=== PATIENT | male | born 1975 | race Caucasian/White ===

== ENCOUNTER 2019-06-13 13:28 | Emergency (ER) | payer MEDICAID, SELFPAY ==
[2019-06-13 13:43] VITALS: BP 203/104; PULSE 62; RESP 18; TEMP 36.6; O2SAT 99; BMI 34.7
--- NOTE | 2019-06-13 13:50 | HMH.EDUTC ---
[facility] [place] Disposition Clinical Impression: Medication refill Disposition: Home, Self-Care Condition on Discharge: Good Instructions: Treatments for High Blood Pressure: More Than Just Taking a Pill, Hypertension (Alternative Therapy) Additional Instructions: Make sure to take your medication as prescribed as instructed by your PCP *Follow up with family doctor as prescribed *Return if needed Straight to ER if any life threatening symptoms Prescriptions: Lisinopril/Hydrochlorothiazide [Lisinopril-Hctz 20-25 mg Tab*] 1 tab PO DAILY 30 Days #30 tab Prescription Printed Referrals: Provider,Referral, [Primary Care Provider] - Beverly Fisher APRN [Referring] - As needed Time of Disposition: 14:22 Medical Decision Making - Fili Inquiry Pt receiving controlled substance: No Fili was queried for this patient: No Vital Signs: 06/13/19 13:43 Temperature 97.8 F Temperature Source Oral Pulse Rate [Right Brachial] 62 Respiratory Rate 18 Blood Pressure [Right Arm] 203/104 H Blood Pressure Mean [Right Arm] 137 Blood Pressure Source [Right Arm] Automatic Cuff Blood Pressure Position [Right Arm] Sitting 02 Sat by Pulse Oximetry 99 Oxygen Delivery Method Room Air - Reevaluation(s) Time: 14:17 Reevaluation #1: Called and spoke with staff at [facility] office and they looked at patient chart States that patient was prescribed Lisinopril/HCTZ and in Feb she added Amlodipine due to patient blood pressure still elevated but not sure if patient started that medication Called [facility] in [place] where the medication was sent and they advised that patient never picked it up Patient educated on medication and patient states that he went to [facility] the medication and was told it wasnt but will contact them about the medication Discussed with clinic that we would give him one month supply of his Lisinopril/HCTZ and have him follow up with them or new PCP for further prescriptions [facility] HPI - General Stated complaint: blood pressure check Time Seen by Provider: 06/13/19 13:50 Mode of Arrival: Ambulatory Source of Information: Patient Limitations: No Limitations Description of Symptoms (Recalled from Triage Doc. by RN): PATIENT STATES HE HAS NOT BEEN ON HIS BLOOD PRESSURE MEDS X 1 MONTH. HE SAYS HE HAS CHANGED PCP AND HAS A NEW ONE, HOWEVER HAS NOT BEEN ABLE TO GET IN TO SEE THEM. C/O ON AND OFF HEADACHES FOR THE LAST MONTH HEENT Symptoms (Recalled from RN notes): Yes Resp Symptoms (Recalled from RN notes): No Skin Symptoms (Recalled from RN notes): No MS Symptoms (Recalled from RN notes): No Functional Status (Recalled from RN notes): WNL - History of Present Illness Provider Complaint: Patient state that he is in the process of changing providers and he has been out of his Blood pressure medication for about a month States that he had appointment with his new provider but was unable to get in due to COVID19 shutdown. States that he is here today to see if he can get a refill on his medication to get him through until he sees his new provider. State that he has been having headaches on and off for the last month and knows that his blood pressure is up without his medication because he has been on it so long - Related Data Previous Rx's Medication Instructions Recorded Lisinopril/Hydrochlorothiazide 1 tab PO DAILY 30 Days #30 tab 06/13/19 [Lisinopril-Hctz 20-25 mg Tab*] Allergies Allergy/AdvReac Type Severity Reaction Status Date / Time No Known Allergies Allergy Verified 06/13/19 13:55 - Worker's Comp Is this a Worker's Comp case?: No [facility] History - Hepatitis A Screen Drug use history?: No High risk sexual behaviors?: No History of sexually transmitted infection?: No Currently employed?: No Childcare worker?: No Do you have indoor plumbing?: Yes Do you have electricity?: Yes Attestation statement:: This patient has been screened for Hepatitis A risk factors. I have reviewed the patient's pas
[2019-06-13 14:05] VITALS: BP 170/88
--- NOTE | 2019-06-13 14:15 | PC.NURSE ---
SPOKE WITH [facility] TO VERIFY THAT PATIENT HAS A PRESCRIPTION FOR AMLODIPINE. HE DOES HAVE AN AMLODIPINE PRESCRIPTION ON HOLD FOR HIM SINCE FEBRUARY
[2019-06-13 14:26] VITALS: BP 170/88; PULSE 62; RESP 18; TEMP 36.6; O2SAT 99
== END 2019-06-13 14:27 | disposition home or self-care (01) ==
PROVIDERS: Emergency Provider Nurse Practitioner
DX: R51 Headache (principal); I10 Essential (primary) hypertension; Z79.899 Other long term (current) drug therapy
CPT/HCPCS: 99201

== ENCOUNTER 2021-12-05 10:16 | Emergency (ER) | payer MEDICAID, SELFPAY ==
[2021-12-05 11:19] VITALS: BP 174/94; PULSE 82; RESP 18; TEMP 36.9; O2SAT 98; BMI 53.6
--- NOTE | 2021-12-05 11:30 | EXP.UTC ---
Discharge Plan Disposition Patient Disposition: Home, Self-Care Condition: Fair Prescriptions Prescriptions: New lisinopril-hydrochlorothiazide 20-25 mg tablet 1 tab PO BID Qty: 60 0RF metformin 1,000 mg tablet extended release 24 hr 1,000 mg PO DAILY Qty: 30 0RF atorvastatin [Lipitor] 10 mg tablet 10 mg PO HS Qty: 30 0RF aspirin [Adult Aspirin Regimen] 81 mg tablet,delayed release (DR/EC) 81 mg PO DAILY Qty: 30 0RF (DME) blood-glucose meter Misc See Rx Instructions .Route Qty: 1 0RF Rx Instructions: As directed (DME) Blood Glucose Test Strip See Rx Instructions .Route Qty: 50 0RF Rx Instructions: As directed No Action buprenorphine-naloxone 8-2 mg tablet, sublingual SUBLINGUAL gabapentin 100 mg capsule 100 mg PO TID 30 Days Qty: 90 0RF metoprolol succinate 25 mg tablet extended release 24 hr See Rx Instructions .ROUTE .COMPLEX Qty: 30 1RF Dose Instruction: TAKE 1 TABLET BY MOUTH EVERY DAY Rx Instructions: TAKE 1 TABLET BY MOUTH EVERY DAY sertraline 50 mg tablet See Rx Instructions .ROUTE .COMPLEX Qty: 30 1RF Dose Instruction: TAKE 1 TABLET BY MOUTH EVERY DAY Rx Instructions: TAKE 1 TABLET BY MOUTH EVERY DAY lisinopril-hydrochlorothiazide 20-25 mg tablet 1 tab PO DAILY Qty: 30 0RF Referrals Follow up/Referrals: Provider,MD Wallace [Primary Care Provider] - See instructions Bradley Mejia MD [Staff Physician] - See instructions (12/11/2021 2:00 PM [facility]) Clinical Impressions Clinical Impression: Hypertension, Diabetes mellitus Discharge ED Provider: Aimee Fisher [facility] [place] HPI General Stated complaint: Sugar, blood pressure Mode of Arrival: Ambulatory Source of Information: Patient Limitations: No Limitations Time Seen by Provider: 12/05/21 11:30 Description of Symptoms (Recalled from Triage Doc. by RN): Pt c/o elevated BP x5-6 years and elevated blood sugar x1 month. Pt states I need to be put on medication . HEENT Symptoms (Recalled from RN notes): No Resp Symptoms (Recalled from RN notes): No Skin Symptoms (Recalled from RN notes): No MS Symptoms (Recalled from RN notes): No Functional Status (Recalled from RN notes): n/a History of Present Illness Provider Complaint: Patient was seen at [facility] clinic and was told he needed medicine for his blood pressure and sugar. He has had high blood pressure for 5-6 years. Has RX for Zestoretic - says it is helping. But states that he does not currently have a PCP. He states that he has missed appointments, due to issues with his mother. She did get placed in a senior care yesterday. He denies headache, chest pain, vertigo, dyspnea. Previously referred for sleep study but did not have it done. He does state he is thirsty and tired all the time. His suboxone prescriber did labs and glucose was high, but he forgot to bring those labs with him today. Related Data Home Medications Medication Instructions Recorded Confirmed buprenorphine 8 mg-naloxone 2 mg sublingual 09/05/19 06/05/20 sublingual tablet Previous Rx's Medication Instructions Recorded gabapentin 100 mg capsule 100 mg PO TID 30 days #90 caps 09/05/19 metoprolol succinate 25 mg See Rx Instructions .Route 12/09/20 tablet,extended release 24 hr .COMPLEX #30 tabs sertraline 50 mg tablet See Rx Instructions .Route 12/09/20 .COMPLEX #30 tabs lisinopril 20 1 tab PO DAILY #30 tabs 10/23/21 mg-hydrochlorothiazide 25 mg tablet aspirin 81 mg tablet,delayed 81 mg PO DAILY #30 tabs 12/05/21 release (Adult Aspirin Regimen) atorvastatin 10 mg tablet (Lipitor) 10 mg PO HS #30 tabs 12/05/21 blood sugar diagnostic (Blood #50 ea 12/05/21 Glucose Test strips) blood-glucose meter #1 ea 12/05/21 lisinopril 20 1 tab PO BID #60 tabs 12/05/21 mg-hydrochlorothiazide 25 mg tablet metformin 1,000 mg tablet,extended 1,000 mg PO DAILY #30 tabs 12/05/21 release 24hr Al
[2021-12-05 12:05] VITALS: BP 174/94; PULSE 82; RESP 18; TEMP 36.9; O2SAT 98
[2021-12-05 12:10] LABS: Basophils # 0.1 K/mm3 (0-0.2); Basophils % 1.3 % (0.1-2.0); Eosinophils # 0.5 K/mm3 (0.0-0.4); Eosinophils % 5.1 % (0.1-12.0); Hematocrit 49.6 % (42.0-52.0); Hemoglobin 16.5 g/dL (14.1-18.0); Lymphocytes # 2.6 K/mm3 (0.7-4.5); Lymphocytes % 24.8 % (10-50); Mean Corpuscular HGB Conc 33.2 g/dL (31.8-35.4); Mean Corpuscular Hemoglobin 29.8 pg (27.0-31.2); Mean Corpuscular Volume 89.9 fl (80-94); Mean Platelet Volume 8.6 fl (7.4-10.4); Monocytes # 0.3 K/mm3 (0.1-1.0); Monocytes % 3.3 % (1.7-9.3); Neutrophils # 6.9 K/mm3 (1.8-7.8); Neutrophils % 65.5 % (37.0-80.0); Platelet Count 317 K/mm3 (142-424); Red Blood Count 5.52 M/mm3 (4.60-6.20); Red Cell Distribution Width 12.9 % (11.5-17.5); White Blood Count 10.5 K/mm3 (4.8-10.8)
[2021-12-05 12:15] LABS: POC Glucose,Bedside 405 (70-110)
[2021-12-05 12:15] LABS: Chloride 91 mmol/L (98-107); Potassium 3.8 mmoL/L (3.5-5.1); Sodium 136 mmol/L (136-145)
[2021-12-05 12:18] LABS: Alanine Aminotransferase 58 U/L (12-78); Albumin Level 4.5 g/dl (3.5-5.0); Albumin/Globulin Ratio 1.2 (1.1-1.8); Alkaline Phosphatase 100 U/L (38-126); Anion Gap 15.8 mEq/L (5-15); Aspartate Amino Transferase 46 U/L (17-59); Bilirubin,Total 0.7 mg/dl (0.2-1.3); Blood Urea Nitrogen 8 mg/dl (9-20); Carbon Dioxide 33 mmol/L (22.0-30.0); Creatinine Clearance Estimated 72 mL/min (50-200); Estimated Glomerular Filt Rate 90 ml/min (>60); GFR (African American) 109 ML/MIN (>60); Globulin 3.8 g/dL (1.3-3.2); Total Protein,Serum 8.3 g/dl (6.3-8.2)
[2021-12-05 12:19] LABS: Calcium 9.2 mg/dl (8.4-10.2)
[2021-12-05 12:22] LABS: Glucose 412 mg/dl (74-100); Hemoglobin A1C 10.9 % (4.0-6.0)
[2021-12-05 12:44] LABS: Chol/HDL Ratio 6.1 (1-3.5); Cholesterol 208 mg/dl (140-200); HDL Cholesterol 34 mg/dl (40-60); Triglycerides 150 mg/dl (30-150); VLDL Cholesterol 30 mg/dL (0-40)
[2021-12-05 12:49] LABS: Thyroid Stimulating Hormone 5.01 uIU/mL (0.465-4.68)
[2021-12-05 12:55] LABS: Direct LDL Cholesterol 129.04 mg/dL (100-129)
== END 2021-12-05 12:05 | disposition home or self-care (01) ==
PROVIDERS: Emergency Provider Physician Assistant
DX: E11.65 Type 2 diabetes mellitus with hyperglycemia (principal); I10 Essential (primary) hypertension; Z79.899 Other long term (current) drug therapy; F41.9 Anxiety disorder, unspecified; F43.10 Post-traumatic stress disorder, unspecified; G62.9 Polyneuropathy, unspecified; F11.11 Opioid abuse, in remission
CPT/HCPCS: 36415; 80053; 80061; 82962; 83036; 84443; 85025; 99283

== ENCOUNTER 2022-02-13 12:43 | Emergency (ER) | payer MEDICAID, SELFPAY ==
--- NOTE | 2022-02-13 15:10 | EXP.UTC ---
Discharge Plan Disposition Patient Disposition: Home, Self-Care Condition: Good Prescriptions Prescriptions: New lisinopril-hydrochlorothiazide 20-25 mg tablet 1 tab PO BID 30 Days Qty: 60 0RF metformin 500 mg tablet extended release 24hr 1,000 mg PO DAILY 30 Days Qty: 60 0RF No Action buprenorphine-naloxone 8-2 mg tablet, sublingual SUBLINGUAL gabapentin 100 mg capsule 100 mg PO TID 30 Days Qty: 90 0RF metoprolol succinate 25 mg tablet extended release 24 hr See Rx Instructions .ROUTE .COMPLEX Qty: 30 1RF Dose Instruction: TAKE 1 TABLET BY MOUTH EVERY DAY Rx Instructions: TAKE 1 TABLET BY MOUTH EVERY DAY sertraline 50 mg tablet See Rx Instructions .ROUTE .COMPLEX Qty: 30 1RF Dose Instruction: TAKE 1 TABLET BY MOUTH EVERY DAY Rx Instructions: TAKE 1 TABLET BY MOUTH EVERY DAY lisinopril-hydrochlorothiazide 20-25 mg tablet 1 tab PO DAILY Qty: 30 0RF lisinopril-hydrochlorothiazide 20-25 mg tablet 1 tab PO BID Qty: 60 0RF metformin 1,000 mg tablet extended release 24 hr 1,000 mg PO DAILY Qty: 30 0RF atorvastatin [Lipitor] 10 mg tablet 10 mg PO HS Qty: 30 0RF aspirin [Adult Aspirin Regimen] 81 mg tablet,delayed release (DR/EC) 81 mg PO DAILY Qty: 30 0RF (DME) blood-glucose meter Misc See Rx Instructions .Route Qty: 1 0RF Rx Instructions: As directed (DME) Blood Glucose Test Strip See Rx Instructions .Route Qty: 50 0RF Rx Instructions: As directed Referrals Follow up/Referrals: Bradley Mejia MD [Primary Care Provider] - See instructions Activity Restrictions/Add. Instructions Additional Instructions/Restrictions: Follow up with your Family Doctor for further prescriptions and refills on your medication Return if needed Further instructions per your Family Doctor Straight to ER if any life threatening symptoms Clinical Impressions Clinical Impression: Medication refill Instructions Patient Instructions: Hypertension (Alternative Therapy), Hydrochlorothiazide/Lisinopril (Alternative Therapy), Metformin Discharge ED Provider: Beatris Anderson [facility] [place] HPI General Stated complaint: blood pressure meds maybe day and night Time Seen by Provider: 02/13/22 15:10 Description of Symptoms (Recalled from Triage Doc. by RN): Patient states that he missed his appointment with his PCP to get his blood pressure and diabetes meds filled States that he missed his appointment due to mother was in the hospital due to stroke States that he wanted to get a refill until he can get into his family doctor to get him medication refilled states that he has been making what he had last but ran out a few weeks ago Related Data Home Medications Medication Instructions Recorded Confirmed buprenorphine 8 mg-naloxone 2 mg sublingual 09/05/19 06/05/20 sublingual tablet Previous Rx's Medication Instructions Recorded gabapentin 100 mg capsule 100 mg PO TID 30 days #90 caps 09/05/19 metoprolol succinate 25 mg See Rx Instructions .Route 12/09/20 tablet,extended release 24 hr .COMPLEX #30 tabs sertraline 50 mg tablet See Rx Instructions .Route 12/09/20 .COMPLEX #30 tabs lisinopril 20 1 tab PO DAILY #30 tabs 10/23/21 mg-hydrochlorothiazide 25 mg tablet aspirin 81 mg tablet,delayed 81 mg PO DAILY #30 tabs 12/05/21 release (Adult Aspirin Regimen) atorvastatin 10 mg tablet (Lipitor) 10 mg PO HS #30 tabs 12/05/21 blood sugar diagnostic (Blood #50 ea 12/05/21 Glucose Test strips) blood-glucose meter #1 ea 12/05/21 lisinopril 20 1 tab PO BID #60 tabs 12/05/21 mg-hydrochlorothiazide 25 mg tablet metformin 1,000 mg tablet,extended 1,000 mg PO DAILY #30 tabs 12/05/21 release 24hr lisinopril 20 1 tab PO BID 30 days #60 tabs 02/13/22 mg-hydrochlorothiazide 25 mg tablet metformin 500 mg tablet,extended 1,000 mg PO DAILY 30 days #60 tabs 02/13/22 release 24hr Allergies Allergy/AdvReac Type Severity Re
[2022-02-13 15:16] VITALS: BP 193/108; PULSE 65; RESP 18; TEMP 37.2; O2SAT 99; BMI 40.2
[2022-02-13 15:39] VITALS: BP 190/100; PULSE 65; RESP 18; TEMP 37.2
== END 2022-02-13 15:46 | disposition home or self-care (01) ==
PROVIDERS: Emergency Provider Nurse Practitioner; PCP Emergency Medicine
DX: I10 Essential (primary) hypertension (principal)
CPT/HCPCS: 99211; G0463

== ENCOUNTER 2022-12-11 15:31 | Emergency (ER) | payer MEDICAID, SELFPAY ==
[2022-12-11 15:32] VITALS: BP 160/95; PULSE 70; RESP 18; TEMP 36.7; O2SAT 97; BMI 40.2
--- NOTE | 2022-12-11 16:07 | CT_ITS ---
PROCEDURE INFORMATION: Exam: CTA Head With Contrast, Arteriography Exam date and time: 12/11/2022 5:26 PM Age: 47 years old Clinical indication: Headache; Additional info: DONOHUE; Randy hist of aneurysm TECHNIQUE: Imaging protocol: Computed tomographic angiography of the head with contrast. Exam focused on the arteries. 3D rendering (Not supervised by radiologist): MIP and/or 3D reconstructed images were created by the technologist. Radiation optimization: All CT scans at this facility use at least one of these dose optimization techniques: automated exposure control; mA and/or kV adjustment per patient size (includes targeted exams where dose is matched to clinical indication); or iterative reconstruction. Contrast material: ISOVUE; Contrast volume: 86 ml; Contrast route: INTRAVENOUS (IV); REPORTING DATA: Count of CT and Cardiac NM exams in prior 12 months: This patient has received 0 known CTs and 0 known cardiac nuclear medicine studies in the 12 months prior to the current study. COMPARISON: CT HEAD/BRAIN WO CON 12/11/2022 5:23 PM FINDINGS: ANTERIOR CIRCULATION: Right internal carotid artery: Intracranial segment is patent with no significant stenosis. No aneurysm. Right middle cerebral artery: No occlusion or significant stenosis. No aneurysm. Right anterior cerebral artery: No occlusion or significant stenosis. No aneurysm. Left internal carotid artery: Intracranial segment is patent with no significant stenosis. No aneurysm. Left middle cerebral artery: No occlusion or significant stenosis. No aneurysm. Left anterior cerebral artery: No occlusion or significant stenosis. No aneurysm. POSTERIOR CIRCULATION: Right vertebral artery: No occlusion or significant stenosis. No aneurysm. Left vertebral artery: No occlusion or significant stenosis. No aneurysm. Basilar artery: No occlusion or significant stenosis. No aneurysm. Right posterior cerebral artery: No occlusion or significant stenosis. No aneurysm. Left posterior cerebral artery: No occlusion or significant stenosis. No aneurysm. Brain: No definite mass, mass effect, or midline shift. Cerebral ventricles: No ventriculomegaly. Bones/joints: Unremarkable. No acute fracture. Soft tissues: Unremarkable. IMPRESSION: No large vessel stenosis or occlusion.
--- NOTE | 2022-12-11 16:07 | CT_ITS ---
PROCEDURE INFORMATION: Exam: CTA Neck With Contrast Exam date and time: 12/11/2022 5:26 PM Age: 47 years old Clinical indication: Headache; Additional info: DONOHUE; Fam hist of aneurysm TECHNIQUE: Imaging protocol: Computed tomographic angiography of the neck with contrast. Exam focused on the cervical segments of the vasculature. 3D rendering (Not supervised by radiologist): MIP and/or 3D reconstructed images were created by the technologist. Radiation optimization: All CT scans at this facility use at least one of these dose optimization techniques: automated exposure control; mA and/or kV adjustment per patient size (includes targeted exams where dose is matched to clinical indication); or iterative reconstruction. Contrast material: ISOVUE; Contrast volume: 86 ml; Contrast route: INTRAVENOUS (IV); REPORTING DATA: Count of CT and Cardiac NM exams in prior 12 months: This patient has received 0 known CTs and 0 known cardiac nuclear medicine studies in the 12 months prior to the current study. COMPARISON: CT HEAD/BRAIN WO CON 12/11/2022 5:23 PM FINDINGS: Right common carotid artery: No stenosis. No dissection or occlusion. Right internal carotid artery: No stenosis of the extracranial segment. No dissection or occlusion. Right external carotid artery: No occlusion or stenosis of the origin. Left common carotid artery: No stenosis. No dissection or occlusion. Left internal carotid artery: No stenosis of the extracranial segment. No dissection or occlusion. Left external carotid artery: No occlusion or stenosis of the origin. Right vertebral artery: No stenosis. No dissection or occlusion. Left vertebral artery: No stenosis. No dissection or occlusion. Soft tissues: Normal. No significant soft tissue swelling. Bones/joints: No acute fracture. Mildly prominent lymph nodes in the mediastinum and hilum are nonspecific. Impression. Last. Correlate with history. IMPRESSION: No stenosis or occlusion. REFERENCES: NASCET CRITERIA. The degree of stenosis in the cervical segment of the internal carotid artery is based on NASCET criteria. Normal is no stenosis. Mild is less than 50% stenosis. Moderate is 50-69% stenosis. Severe is 70% to 99% stenosis. Total occlusion is no detectable patent lumen.
--- NOTE | 2022-12-11 16:07 | CT_ITS ---
PROCEDURE INFORMATION: Exam: CT Head Without Contrast Exam date and time: 12/11/2022 5:23 PM Age: 47 years old Clinical indication: Other: Headache; Additional info: DONOHUE; Fam hist of aneurysm TECHNIQUE: Imaging protocol: Computed tomography of the head without contrast. Radiation optimization: All CT scans at this facility use at least one of these dose optimization techniques: automated exposure control; mA and/or kV adjustment per patient size (includes targeted exams where dose is matched to clinical indication); or iterative reconstruction. REPORTING DATA: Count of CT and Cardiac NM exams in prior 12 months: This patient has received 0 known CTs and 0 known cardiac nuclear medicine studies in the 12 months prior to the current study. COMPARISON: No relevant prior studies available. FINDINGS: Brain: No acute territorial infarct. No hemorrhage. Unremarkable white matter for age. No mass effect. There is an age indeterminate lacunar type infarct in the right martha. Cerebral ventricles: No ventriculomegaly. Paranasal sinuses: Scattered paranasal sinus mucosal thickening, without air-fluid level present. Mastoid air cells: Visualized mastoid air cells are well aerated. Bones/joints: Unremarkable. No acute fracture. Soft tissues: Unremarkable. IMPRESSION: 1. No acute territorial infarct or hemorrhage. 2. Lacunar type infarct in the right martha is age indeterminate and may be chronic. If acute ischemia is suspected clinically recommend MRI brain follow-up.
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
[2022-12-11 16:53] LABS: Basophils % 0.3 % (0.1-2.0); Eosinophils # 0.4 K/mm3 (0.0-0.4); Eosinophils % 4.9 % (0.1-12.0); Hematocrit 46.2 % (42.0-52.0); Hemoglobin 15.8 g/dL (14.1-18.0); Lymphocytes # 2.1 K/mm3 (0.7-4.5); Lymphocytes % 24.6 % (10-50); Mean Corpuscular HGB Conc 34.2 g/dL (31.8-35.4); Mean Corpuscular Hemoglobin 31.6 pg (27.0-31.2); Mean Corpuscular Volume 92.5 fl (80-94); Mean Platelet Volume 8.3 fl (7.4-10.4); Monocytes # 0.4 K/mm3 (0.1-1.0); Monocytes % 4.3 % (1.7-9.3); Neutrophils # 5.6 K/mm3 (1.8-7.8); Neutrophils % 65.8 % (37.0-80.0); Platelet Count 243 K/mm3 (142-424); Red Cell Distribution Width 13.6 % (11.5-17.5); White Blood Count 8.6 K/mm3 (4.8-10.8)
[2022-12-11 16:58] LABS: Chloride 100 mmol/L (98-107); Sodium 139 mmol/L (136-145)
[2022-12-11 17:00] VITALS: BP 145/82; PULSE 61; O2SAT 97
[2022-12-11 17:01] LABS: Alanine Aminotransferase 45 U/L (12-78); Albumin Level 4.5 g/dl (3.5-5.0); Albumin/Globulin Ratio 1.2 (1.1-1.8); Alkaline Phosphatase 64 U/L (38-126); Aspartate Amino Transferase 39 U/L (17-59); Bilirubin,Total 0.5 mg/dl (0.2-1.3); Blood Urea Nitrogen 15 mg/dl (9-20); Carbon Dioxide 31 mmol/L (22.0-30.0); Estimated Glomerular Filt Rate 90 ml/min (>60); GFR (African American) 109 ML/MIN (>60); Globulin 3.8 g/dL (1.3-3.2); Total Protein,Serum 8.3 g/dl (6.3-8.2)
[2022-12-11 17:02] LABS: Calcium 9.1 mg/dl (8.4-10.2); Glucose 149 mg/dl (74-100)
[2022-12-11 18:00] VITALS: BP 140/84; PULSE 60; O2SAT 99
[2022-12-11 18:58] VITALS: BP 150/80; PULSE 56; RESP 18; TEMP 36.8; O2SAT 97
== END 2022-12-11 18:59 | disposition home or self-care (01) ==
PROVIDERS: Emergency Provider Student in an Organized Health Care Education/Training Program; PCP Physician Assistant
DX: R51.9 Headache, unspecified (principal); I10 Essential (primary) hypertension; F43.10 Post-traumatic stress disorder, unspecified
CPT/HCPCS: 70450; 70496; 70498; 80053; 85025; 96361; 96374; 96375; 99284; 99285; Q9967

== ENCOUNTER 2025-01-14 14:23 | Emergency (ER) | payer MEDICAID, SELFPAY ==
[2025-01-14] VITALS (12 sets, daily range): BP systolic 180–257; BP diastolic 89–121; PULSE 53–88; RESP 14–18; TEMP 36.6–36.7; O2SAT 94–99; BMI 47.5
--- NOTE | 2025-01-14 14:27 | ECG_ITS ---
APPROVED REPORT Exam: Resting ECG HR:65 bpm ECG Measurements Heart Rate 65 AXES OH 151 P 21 QRSd 95 QRS 6 QT 426 T 24 QTc 438 Conclusion SINUS RHYTHM NONSPECIFIC T-WAVE ABNORMALITY BORDERLINE ECG UNCONFIRMED REPORT Electronically signed by : MAURILIO REY, 01/14/2025 23:02:09
--- NOTE | 2025-01-14 14:27 | CT_ITS ---
PROCEDURE INFORMATION: Exam: CTA Head With Contrast, Arteriography Exam date and time: 01/14/2025 3:53 PM Age: 49 years old Clinical indication: Weakness TECHNIQUE: Imaging protocol: Computed tomographic angiography of the head with contrast. Exam focused on the arteries. 3D rendering (Not supervised by radiologist): MIP and/or 3D reconstructed images were created by the technologist. Radiation optimization: All CT scans at this facility use at least one of these dose optimization techniques: automated exposure control; mA and/or kV adjustment per patient size (includes targeted exams where dose is matched to clinical indication); or iterative reconstruction. Contrast material: ISOVUE; Contrast volume: 80 ml; Contrast route: INTRAVENOUS (IV); COMPARISON: 1. CT HEAD/BRAIN WO CON 01/14/2025 3:51 PM. Images only. Report not available. 2. CT HEAD/BRAIN WO CON 12/11/2022 5:23 PM FINDINGS: ANTERIOR CIRCULATION: Right internal carotid artery: The right ICA demonstrates mild calcified atherosclerosis not contributing to significant stenosis. No aneurysm. Right middle cerebral artery: No occlusion or significant stenosis. No aneurysm. Right anterior cerebral artery: No occlusion or significant stenosis. No aneurysm. Left internal carotid artery: The left ICA demonstrates mild calcified atherosclerosis not contributing to significant stenosis. No aneurysm. Left middle cerebral artery: No occlusion or significant stenosis. No aneurysm. Left anterior cerebral artery: No occlusion or significant stenosis. No aneurysm. POSTERIOR CIRCULATION: Right vertebral artery: The right vertebral artery is dominant. Patent. Left vertebral artery: The left vertebral artery is mildly developmentally hypoplastic. Patent. Basilar artery: The basilar artery is patent without significant stenosis. Potentially a subtle fenestration. Right posterior cerebral artery: No occlusion or significant stenosis. No aneurysm. Left posterior cerebral artery: No occlusion or significant stenosis. No aneurysm. Brain: No obvious hemorrhage or recent infarct on these postcontrast images. Cerebral ventricles: Moderate ventriculomegaly. The ventricles do appear prominent in size compared to the degree of convexity sulcal widening. The ventricles are larger compared to the exam of 2022. Please correlate clinically for possible normal pressure hydrocephalus. There are some progressive chronic ischemic changes since prior. Some ventricular enlargement could be due to central volume loss. Bones/joints: Moderate cervical degenerative disc disease. Soft tissues: Unremarkable. IMPRESSION: 1. Moderate ventricular enlargement with increased size of the ventricles since 2022. Please correlate clinically for possible normal pressure hydrocephalus. 2. No proximal intracranial arterial occlusion or high-grade stenosis seen.
--- NOTE | 2025-01-14 14:27 | CT_ITS ---
PROCEDURE INFORMATION: Exam: CT Head Without Contrast Exam date and time: 01/14/2025 3:51 PM Age: 49 years old Clinical indication: Other: Weakness TECHNIQUE: Imaging protocol: Computed tomography of the head without contrast. Radiation optimization: All CT scans at this facility use at least one of these dose optimization techniques: automated exposure control; mA and/or kV adjustment per patient size (includes targeted exams where dose is matched to clinical indication); or iterative reconstruction. COMPARISON: No relevant prior studies available. FINDINGS: Brain: Roblero-white matter differentiation is relatively well-maintained. Moderate decreased density within the periventricular deep white matter. These changes are nonspecific and more in keeping with areas of chronic microvascular ischemic change. Asymmetric area of mild decreased density within the anterior aspect of the left cerebellum more in keeping with areas of prior infarct or prominent sulcus. Mild decreased density is present along the posterior limb of the internal capsule on the right and left, more in keeping with microvascular ischemic change. Small old lacunar infarct within the periventricular deep white matter on the left measuring 5 mm. Probable small old lacunar infarct along the anterolateral margin of the right thalamus. Small 6 mm old lacunar infarct within the periventricular deep white matter in the lower right parietal lobe. Small 6 mm old lacunar infarct within the subcortical deep white matter within the right parietal lobe. Focal 8 mm round areas of decreased density is present along the undersurface of the posterior right frontal lobe. Findings compatible with small old lacunar infarct. New small 5 mm focus of increased density along the cortical margin within the inferomedial aspect of the right parietal lobe. This could correspond to a small calcification or small focal hemorrhage. Area of asymmetric decreased density within the posteromedial aspect of the left occipital lobe appears similar compared to the prior CT scan and may correspond to artifact. Small 4 mm old lacunar infarct or prominent perivascular space within the posterior right aspect of the martha. No subdural or epidural hematoma. No evidence of a new large territorial infarct. Asymmetric area of slight decreased density within the subcortical deep white matter extending over the convexity within the posterior right frontal and right parietal lobe does not definitively extend through the cortical margin and more likely corresponds to an area of microvascular ischemic change. This appears slightly increased in the interval. Cerebral ventricles: Mild prominence of the ventricular and sulcal pattern. The ventricles are midline in position. Paranasal sinuses: Mucosal thickening within the central right and left frontal sinus. Mucosal thickening along the ethmoid air cells. Mucosal thickening and potential retention cysts are present within the right and left maxillary sinus. Mild mucosal thickening within the sphenoid air cells. Mastoid air cells: Mastoid air cells are well-aerated. Bones: The calvarium is intact. Soft tissues: Soft tissues are unremarkable as visualized. Vasculature: Atherosclerotic plaque is present along the intracranial segment of the right and left internal carotid artery. No hyperdense MCA sign. Scattered atherosclerotic plaque along the intracranial segment of the right and left vertebral artery. IMPRESSION: 1. New small 5 mm focus of increased cortical density within the left parietal lobe (image 144 of series 5). Findings could correspond to a small focal areas of cortical hemorrhage. No other evidence of intraparenchymal hemorrhage. No subdural or epidural hematoma or fluid collection. 2. Mild prominence of the periventricular and subcortical deep white matter. There are numerous scattered small lacunar infarcts as described above. A few of these were present on prior CT scan. Additional areas are new. There is superimposed decreased density within the periventricular deep white matter, more prominent on the right. These changes correspond to additional underlying chronic microvascular ischemic change. No definitive new large territorial infarct. No hyperdense MCA sign. Given reported weakness, follow-up MRI of the brain should be considered.
--- NOTE | 2025-01-14 14:27 | CT_ITS ---
PROCEDURE INFORMATION: Exam: CTA Neck With Contrast Exam date and time: 01/14/2025 3:53 PM Age: 49 years old Clinical indication: Weakness TECHNIQUE: Imaging protocol: Computed tomographic angiography of the neck with contrast. Exam focused on the cervical segments of the vasculature. 3D rendering (Not supervised by radiologist): MIP and/or 3D reconstructed images were created by the technologist. Radiation optimization: All CT scans at this facility use at least one of these dose optimization techniques: automated exposure control; mA and/or kV adjustment per patient size (includes targeted exams where dose is matched to clinical indication); or iterative reconstruction. Contrast material: ISOVUE; Contrast volume: 80 ml; Contrast route: INTRAVENOUS (IV); COMPARISON: CT ANGIO NECK 12/11/2022 5:26 PM FINDINGS: Right common carotid artery: No stenosis. No dissection or occlusion. Right internal carotid artery: Trace proximal right ICA atherosclerosis does not contribute to stenosis. There is elongation and tortuosity of the distal cervical right ICA with mild vascular kinking. Right external carotid artery: No occlusion or stenosis of the origin. Left common carotid artery: No stenosis. No dissection or occlusion. Left internal carotid artery: Mild proximal left ICA atherosclerosis does not contribute to stenosis. Elongation and tortuosity of the distal cervical left ICA. Left external carotid artery: No occlusion or stenosis of the origin. Right vertebral artery: Moderate narrowing of the right vertebral artery origin due to noncalcified plaque. This is similar to the prior study, somewhat suboptimally assessed due to motion. Left vertebral artery: The left vertebral artery arises directly from the aortic arch. Patent. No dissection. Soft tissues: Normal. No significant soft tissue swelling. Bones/joints: No acute fracture. Mediastinal space: Some limitations assessing the upper mediastinum due to motion artifact. Mildly prominent lymph nodes appear grossly similar to the prior study. IMPRESSION: 1. No acute vascular findings in the neck. 2. 0% right ICA stenosis. 3. 0% left ICA stenosis. 4. Moderate origin stenosis of the right vertebral artery. REFERENCES: NASCET CRITERIA. The degree of stenosis in the cervical segment of the internal carotid artery is based on NASCET criteria. Normal is no stenosis. Mild is less than 50% stenosis. Moderate is 50-69% stenosis. Severe is 70% to 99% stenosis. Total occlusion is no detectable patent lumen.
--- OUTSIDE RECORDS SUMMARY | 2025-01-14 14:28 | XMS_ITS | Clinical Summary ---
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 Active metoprolol tartrate (LOPRESSOR) 25 MG tablet Take 25 mg by mouth 2 (Two) Times a Day. Active Social History Tobacco Use Types Packs/Day Years Used Date Smoking Tobacco: Never Smokeless Tobacco: Never Alcohol Use Standard Drinks/Week Comments Yes 0 (1 standard drink = 0.6 oz pur e alcohol) Abuse Screen Answer Date Recorded Unsafe at Home or Work/School Not on file Feels Threatened by Someone? Not on file Does Anyone Keep You from Co ntacting Others or Doint Things Outside the Home? Not on file 11/27/2022 Physical Sign of Abuse Present Not on file 1 Housing Stability Answer Date Recorded Current Living Arrangements Not on file 11/15 Potentially Unsafe Housing Conditions Not on nataly e 11/27/2022 Family and Community Support Answer Raymond e Recorded Help with Day-to-Day Activities Not on file 11/27/2022 Lonely or Isolated Not on file 11/27/2022 Employment Answer Date Recorded Do you want help finding or keeping work or a magen b? Not on file 11/27/2022 Disabilities Answer Date Recorded Concentrating, Remembering, or Making Decisions Difficulty Not on file 11/27/2022 Doing Errands Independently Difficulty Not on fi le 11/27/2022 Education Answer Date Recorded Help with school or training? Not on file Preferred Language Not on file 11/27/2022 Sex and Gender Information Value Date Recorded Sex Assigned at Not on file Legal Sex Male 12:12 PM EDT Gender Identity Not on file Sexual Orientation Not on file Last Filed Vital Signs Vital Sign Reading Time Taken Comments Blood Pressure 152/110 10/10/2020 1:41 PM EDT Pulse 59 10/10/2020 1:24 PM EDT Temperature 36.3 C (97.3 F) 10/10/2020 1:24 PM EDT Respiratory Rate 16 10/10/2020 1:24 PM EDT Oxygen Saturation 99% 10/10/2020 1:24 PM EDT Inhaled Oxygen Concentration - - Weight 110 kg (243 lb) 10/10/2020 1:24 PM EDT Height 157.5 cm (5' 2 ) 10/10/2020 1:24 PM EDT Body Mass Index 44.45 10/10/2020 1:24 PM EDT Plan of Treatment Health Maintenance Due Date Last Done Comments ANNUAL PHYSICAL 1974 HEPATITIS C SCREENING 1974 TDAP/TD VACCINES (1 - Tdap) 1993 COLOGUARD 2019 COLON CANCER SCREENING 5 YEAR SIGMOIDOSCOPY 2019 COLONOSCOPY 2019 [address] CANCER SCREENING [address] COLONOGRAPHY 2019 FECAL OCCULT BLOOD TEST 2019 FIT Testing (1 year) 2019 Pneumococcal Vaccine 50+ (1 of 1 - PCV) 01/29/2024 ZOSTER VACCINE (1 of 2) 01/29/2024 INFLUENZA VACCINE 09/15/2024 Insurance [employer] MEDICAID [place] [id number] Care Teams 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
--- OUTSIDE RECORDS SUMMARY | 2025-01-14 14:28 | XMS_ITS | Clinical Summary ---
Author Organization 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 Name Role Phone Unavailable Primary Care Provider Unavailabl e Social History Tobacco Use Types Packs/Day Years Used Date Smoking Tobacco: Never Assessed Sex and Gender Information Value Date Recorded Sex Assigned at Not on file Legal Sex Male 4:09 AM EDT Gender Identity Not on file Sexual Orientation Not on file Plan of Treatment Health Maintenance Due Date Last Done Comments Annual Wellness Exam 1977 DTaP/TDaP/Td (1 - Tdap) 1993 Hepatitis B Vaccine (1 of 3 - 19+ 3-dose series) 1993 Cologuard 2019 Colon Cancer Screening 2019 Colonoscopy 2019 FIT 2019 Sigmoidoscopy 2019 Virtual Colonography 2019 Pneumococcal Vaccine 50+ (1 of 1 - PCV) 01/29/2024 Zoster (1 of 2) 01/29/2024 COVID-19 Vaccine (1 - 2024-2 6 season) 2024 Influenza Vaccine (#1) 2024 Meningococcal B Vaccine Aged Out No l onger eligible based on patient's age to complete this topic
[2025-01-14 14:37] LABS: Hematocrit 49.7 % (42.0-52.0); Hemoglobin 17.2 g/dL (14.1-18.0); Immature Granulocytes % 0.4 %; Mean Corpuscular HGB Conc 34.6 g/dL (31.8-35.4); Mean Corpuscular Hemoglobin 29.7 pg (27.0-31.2); Mean Corpuscular Volume 85.8 fl (80-94); Nucleated Red Blood Cells % 0 %; Platelet Count 314 K/mm3 (142-424); Red Blood Count 5.79 M/mm3 (4.60-6.20); Red Cell Distribution Width-SD 38.5 fL; White Blood Count 15.6 K/mm3 (4.8-10.8)
[2025-01-14 14:45] LABS: Activated Partial Thrombo Time 26.2 seconds (22.8-30.6); INR 1.04 (0.9-1.1); Prothrombin Time 11.5 seconds (10.1-12.5)
--- NOTE | 2025-01-14 14:45 | ED_ITS ---
Discharge Plan Disposition Chief Complaint: Dizziness Prescriptions Prescriptions: No Action buprenorphine-naloxone 8-2 mg tablet, sublingual SUBLINGUAL metoprolol succinate 25 mg tablet extended release 24 hr See Rx Instructions .ROUTE .COMPLEX Qty: 30 1RF Dose Instruction: TAKE 1 TABLET BY MOUTH EVERY DAY Rx Instructions: TAKE 1 TABLET BY MOUTH EVERY DAY metformin 500 mg tablet extended release 24 hr See Rx Instructions .ROUTE .COMPLEX Qty: 60 2RF Dose Instruction: TAKE 2 TABLETS BY MOUTH EVERY DAY Rx Instructions: TAKE 2 TABLETS BY MOUTH EVERY DAY (DME) blood-glucose meter [OneTouch Verio Reflect Meter] [facility] See Rx Instructions .ROUTE .COMPLEX Qty: 1 0RF Dose Instruction: USE DIRECTED Rx Instructions: USE DIRECTED atorvastatin 10 mg tablet See Rx Instructions .ROUTE .COMPLEX Qty: 30 0RF Dose Instruction: TAKE 1 TABLET BY MOUTH ONCE DAILY Rx Instructions: TAKE 1 TABLET BY MOUTH ONCE DAILY patient needs an appt before anymore refills aspirin 81 mg tablet,delayed release (DR/EC) See Rx Instructions .ROUTE .COMPLEX Qty: 30 2RF Dose Instruction: TAKE 1 TABLET BY MOUTH ONCE DAILY Rx Instructions: TAKE 1 TABLET BY MOUTH ONCE DAILY lisinopril-hydrochlorothiazide 20-25 mg tablet See Rx Instructions .ROUTE .COMPLEX Qty: 60 2RF Dose Instruction: TAKE 1 TABLET BY MOUTH TWICE DAILY Rx Instructions: TAKE 1 TABLET BY MOUTH TWICE DAILY (DME) OneTouch Verio test strips Strip See Rx Instructions .ROUTE .COMPLEX Qty: 100 5RF Dose Instruction: USE TO CHECK BLOOD SUGAR DIRECTED Rx Instructions: USE TO CHECK BLOOD SUGAR DIRECTED Referrals Follow up/Referrals: Provider,Referral, [Primary Care Provider, Medical] - See instructions Stand Alone Forms Stand Alone Forms: Transfer Record - ED Print Language Print Language: [place] Discharge ED Provider: Noah Browne General Adult HPI <Noah Browne MD - Last Filed: 01/14/25 15:25> General Chief complaint: Dizziness Stated complaint: Hypertension Time Seen by Provider: 01/14/25 14:26 Mode of Arrival: EMS Source of Information: Patient Description of Symptoms (Recalled from ER Triage Doc. by RN): Reports dizziness and vomiting since Wednesday. States he has a history of high blood pressure and diabetes and hasn't had his medications in 3 years. History of Present Illness HPI narrative: Patient is a 49 yo male with history of diabetes that is uncontrolled and htn that is uncontrolled who presents with 2-3 days of spinning. he also states he has felt weak particularly on the left side since Wednesday. he states that his symptoms started on his way home from the doctor. he denies taking any medication. states that he was on htn mediations up until about 3 months ago, but does not remember what he was on. states history of prior stroke, but does not remember what it was. does recall left sided deficits in the past. Related Data Home Medications ?Medication ?Instructions ?Recorded ?Confirmed buprenorphine 8 mg-naloxone 2 mg sublingual 09/05/19 0 06/18/22 sublingual tablet Previous Rx's ?Medication ?Instructions ?Recorded blood-glucose meter (OneTouch #1 ea 03/05/22 Verio Reflect Meter) atorvastatin 10 mg tablet See Rx Instructions .Route 0 04/15/22 .COMPLEX #30 tabs aspirin 81 mg tablet,delayed See Rx Instructions .Rout e 05/01/22 release .COMPLEX #30 tabs lisinopril 20 See Rx Instructions .Route 0 05/01/22 mg-hydrochlorothiazide 25 mg tablet .COMPLEX #60 tabs metformin 500 mg tablet,extended See Rx Instructions . Route 06/18/22 release 24 hr .COMPLEX #60 tabs metoprolol succinate 25 mg See Rx Instructions .Route 06/18/22 tablet,extended release 24 hr .COMPLEX #30 tabs blood sugar diagnostic (OneTouch #100 ea 03/22/23 Verio test strips) Allergies Allergy/AdvReac Type Severity Reaction Status Date / Time No Known Allergies Allergy Verified 06/18/22 13:54 <Rosa King, DO - Last Filed: 01/14/25 17:23> History of Present Illness HPI narrative: Patient is a 49 yo male with history of diabetes that is uncontrolled and htn that is uncontrolled who presents with 2-3 days of spinning. he also states he has felt weak particularly on the left side since Wednesday. he states that his symptoms started on his way home from the doctor. he denies taking any medication. states that he was on htn mediations up until about 3 months ago, but does not remember what he was on. states history of prior stroke, but does not remember what it was. does recall left sided deficits in the past. Patient denies any chest pain, shortness of breath, abdominal pain nausea vomiting or diarrhea. Patient states that he is supposed to take aspirin but has not been taking aspirin or blood thinners. [facility] <Noah Browne MD - Last Filed: 01/14/25 15:25> [facility] Disclaimer: The information contained in this section may have been updated after the patient was seen, as this information can be updated by other users. Medical History Anxiety Hypertension Neuropathy PTSD (post-traumatic stress disorder) Social History Smoking Status: Former smoker alcohol intake: current alcohol intake frequency: holidays/special occasions only substance use type: former substance user and opiates current occupational status: other Travel in the last 8 weeks?: None Have you lived/traveled outside [place] in past 30 days?: No Contact w/someone who lives/traveled outside US past 30 days?: No Exposure to someone with infectious disease in past 14 days?: No Do you have a fever (greater than 100.4 F or 38 C)?: No Have you tested positive for COVID-19?: No Exposed to someone with COVID-19 in past 14 days?: No Do you have a sore throat?: No Do you have a cough?: No Do you have any weakness?: No Do you have any diarrhea?: No Are you experiencing any unusual bleeding?: No Do you have any muscle aches/pain?: No Do you have any abdominal pain?: No Are you experiencing loss of taste or smell?: No Other Medical History Have you received the Pneumonia Vaccine: No <Noah Browne MD - Last Filed: 01/14/25 15:25> ROS Obtained: Yes All systems reviewed & no additional complaints except as documented <Rosa King DO - Last Filed: 01/14/25 17:23> ROS Obtained: Yes Systems reviewed as appropriate & no additional complaints except as documented Physical Exam <Noah Browne MD - Last Filed: 01/14/25 15:25> General General appearance: alert and in no apparent distress Head Head exam: atraumatic Eye Eye exam: Present normal appearance, PERRL and EOMI ENT ENT exam: Present normal exam Neck Neck exam: Present normal inspection Chest Chest inspection: Present normal inspection Respiratory Respiratory exam: Present other (normal effort on room air) Cardiovascular Cardiovascular exam: Present regular rate and normal rhythm Abdominal Exam Abdominal exam: Present soft and other (obese ) Extremities Exam Extremities exam: Present normal inspection Neurological Exam Neurological exam: Present alert, oriented X3 and other (slight weakness in left upper and lower extremity compared to right, slight left sided facial drooping, sparing the forehead ) Psychiatric Psychiatric exam: Present normal affect Medical Decision Making <Noah Browne MD - Last Filed: 01/14/25 15:25> Medical Records Screening: Per USPSTF and CDC recommendations, given the prevalence of disease in our region, it is our hospital?s policy to screen for HIV and viral Hepatitis for all patients aged 18 and over and those with ongoing risk factors. Fili Inquiry Pt receiving controlled substance: No Vital Signs: 01/14/25 14:19 01/14/25 14:31 01/14/25 14:45 Temperature 97.9 F Temperature Source Oral Pulse Rate 64 65 Pulse Rate [Radial] 82 Respiratory Rate 18 16 14 Blood Pressure 238/119 H Blood Pressure [Right Arm] 213/111 H Blood Pressure Mean Blood Pressure Mean [Right Arm] 145 Blood Pressure Source [Right Arm] Automatic Cuff Blood Pressure Position [Right Arm] Sitting 02 Sat by Pulse Oximetry 95 94 L 96 Oxygen Delivery Method Room Air Room Air Room Air 01/14/25 15:01 01/14/25 15:31 01/14/25 16:01 Temperature Temperature Source Pulse Rate 59 L 72 56 L Pulse Rate [Radial] Respiratory Rate 16 16 Blood Pressure 238/117 H 257/121 H Blood Pressure [Right Arm] Blood Pressure Mean Blood Pressure Mean [Right Arm] Blood Pressure Source [Right Arm] Blood Pressure Position [Right Arm] 02 Sat by Pulse Oximetry 96 98 98 Oxygen Delivery Method Room Air Room Air 01/14/25 16:01 01/14/25 16:15 01/14/25 16:28 Temperature Temperature Source Pulse Rate 60 57 L Pulse Rate [Radial] Respiratory Rate Blood Pressure 208/89 H 213/110 H Blood Pressure [Right Arm] Blood Pressure Mean 146 Blood Pressure Mean [Right Arm] Blood Pressure Source [Right Arm] Blood Pressure Position [Right Arm] 02 Sat by Pulse Oximetry 97 97 Oxygen Delivery Method Room Air 01/14/25 16:31 01/14/25 16:40 01/14/25 17:06 Temperature Temperature Source Pulse Rate 53 L 67 66 Pulse Rate [Radial] Respiratory Rate Blood Pressure 191/108 H 201/107 H 203/120 H Blood Pressure [Right Arm] Blood Pressure Mean Blood Pressure Mean [Right Arm] Blood Pressure Source [Right Arm] Blood Pressure Position [Right Arm] 02 Sat by Pulse Oximetry 98 97 98 Oxygen Delivery Method Room Air Room Air Room Air Lab Data Lab Results 01/14/25 14:20: WBC 15.6 H, RBC 5.79, Hgb 17.2, Hct 49.7, MCV 85.8, MCH 29.7, MCHC 34.6, RDW 12.3, Plt Count 314, MPV 10.5 H, Neut % (Auto) 77.0, Lymph % (Auto) 16.8, Kimball % (Auto) 5.2, Eos % (Auto) 0.3, Baso % (Auto) 0.3, Neut # (Auto) 12.0 H, Lymph # (Auto) 2.6, Kimball # (Auto) 0.8, Eos # (Auto) 0.1, Baso # (Auto) 0.1, PT 11.5, INR 1.04, APTT 26.2, Sodium 134 L, Potassium 3.8, Chloride 96 L, Carbon Dioxide 26, Anion Gap 15.8 H, BUN 22 H, Creatinine 0.90, Estimated Creat Clear 76, Estimated GFR 89, Est GFR ( Amer) 108, Glucose 362 H, H emoglobin A1c 10.6 H, Calcium 9.3, Total Bilirubin 1.0, AST 31, ALT 62, Alkaline Phosphatase 96, Troponin I 0.01, Total Protein 8.6 H, Albumin 4.6, Globulin 4.0 H, Albumin/Globulin Ratio 1.2, HCV Ab JACOB w/Rflx PCR Qn Negative, HIV Ag/Ab Combo Qual Negative 01/14/25 14:20 01/14/25 14:20 Orders (Tests/Meds): ED MEDICATIONS Generic Name Dose Route Start Last Admin Trade Name Freq PRN Reason Stop Dose Admin Nicardipine HCl 25 mg/ Sodium 250 mls @ 50 mls/hr 01/14/25 17:05 Chloride IV 02/13/25 17:04 .Q5H MARK Protocol 5 MG/HR Miscellaneous 1 each 01/14/25 14:27 Consider Pt For Statin At Discharge-Stroke NOTAPPLIC 02/13/25 14:26 NEEDED PRN Reminder for med @discharge Discontinued Medications Generic Name Dose Route Start Last Admin Trade Name [place] PRN Reason Stop Dose Admin Lactated Ringer's 500 mls @ 999 mls/hr 01/14/25 14:48 01/14/25 15:59 Lactated Ringer's 1000 Ml Bag IV 01/14/25 15:18 Infused .Q31M ONE Infusion Iopamidol 80 ml 01/14/25 15:55 01/14/25 15:59 Iopamidol-370 (76%);100ml Bottle IV 01/14/25 15:56 80 ml ONCE ONE Administration Ondansetron HCl 4 mg 01/14/25 16:54 Ondansetron 4mg/2ml Vial IV 01/14/25 16:55 ONCE ONE Sodium Chloride 10 ml 01/14/25 15:55 01/14/25 15:59 Sodium Chloride 0.9% 10ml Syr (Rad Only) IV 01/14/25 15:56 10 ml ONCE ONE Administration Sodium Chloride 50 ml 01/14/25 15:55 01/14/25 15:59 0.9 % Sodium Chloride 50 Ml Vial IV 01/14/25 15:56 50 ml ONCE ONE Administration ORDERS Category Date Time Status CT angio head Stat Cat Scan 01/14/25 14:[address] angio neck Stat Cat Scan 01/14/25 14:[address] head/brain wo con Stat Cat Scan 01/14/25 14:27 Completed Activated Partial Thrombo Time Stat Lab 01/14/25 14:20 Completed Complete Blood Count Auto Diff Stat Lab 01/14/25 14:20 Completed Comprehensive Metabolic Panel Stat Lab 01/14/25 14:20 Completed HIV Combo Stat Lab 01/14/25 14:20 Completed Hemoglobin A1C Stat Lab 01/14/25 14:20 Completed Hepatitis C Ab Qual. W/ RFX Stat Lab 01/14/25 14:20 Completed Prothrombin Time INR Stat Lab 01/14/25 14:20 Completed Troponin I Q3H Lab 01/14/25 17:30 Ordered Troponin I Q3H Lab 01/14/25 20:30 Ordered Troponin I Stat Lab 01/14/25 14:20 Completed Medical Decision Narrative: hemoconcentraion on cbc, lr ordered deferred aggressive bp mgmt prior to imaging, ct head and cta ordered did not stroke alert given the timing of his symptom onset, but do suspect weakness on the left side. uncertain at this time whether due to stroke recrudescence, new stroke, or bleed Patient signed out to oncoming provider Dr. King to follow-up workup. <Rosa King, - Last Filed: 01/14/25 17:23> Medical Records Medical records reviewed: Yes I reviewed the patient's medical records. Fili Penn was queried for this patient: No Vital Signs: 01/14/25 14:19 01/14/25 14:31 01/14/25 14:45 Temperature 97.9 F Temperature Source Oral Pulse Rate 64 65 Pulse Rate [Radial] 82 Respiratory Rate 18 16 14 Blood Pressure 238/119 H Blood Pressure [Right Arm] 213/111 H Blood Pressure Mean Blood Pressure Mean [Right Arm] 145 Blood Pressure Source [Right Arm] Automatic Cuff Blood Pressure Position [Right Arm] Sitting 02 Sat by Pulse Oximetry 95 94 L 96 Oxygen Delivery Method Room Air Room Air Room Air 01/14/25 15:01 01/14/25 15:31 01/14/25 16:01 Temperature Temperature Source Pulse Rate 59 L 72 56 L Pulse Rate [Radial] Respiratory Rate 16 16 Blood Pressure 238/117 H 257/121 H Blood Pressure [Right Arm] Blood Pressure Mean Blood Pressure Mean [Right Arm] Blood Pressure Source [Right Arm] Blood Pressure Position [Right Arm] 02 Sat by Pulse Oximetry 96 98 98 Oxygen Delivery Method Room Air Room Air 01/14/25 16:01 01/14/25 16:15 01/14/25 16:28 Temperature Temperature Source Pulse Rate 60 57 L Pulse Rate [Radial] Respiratory Rate Blood Pressure 208/89 H 213/110 H Blood Pressure [Right Arm] Blood Pressure Mean 146 Blood Pressure Mean [Right Arm] Blood Pressure Source [Right Arm] Blood Pressure Position [Right Arm] 02 Sat by Pulse Oximetry 97 97 Oxygen Delivery Method Room Air 01/14/25 16:31 01/14/25 16:40 01/14/25 17:06 Temperature Temperature Source Pulse Rate 53 L 67 66 Pulse Rate [Radial] Respiratory Rate Blood Pressure 191/108 H 201/107 H 203/120 H Blood Pressure [Right Arm] Blood Pressure Mean Blood Pressure Mean [Right Arm] Blood Pressure Source [Right Arm] Blood Pressure Position [Right Arm] 02 Sat by Pulse Oximetry 98 97 98 Oxygen Delivery Method Room Air Room Air Room Air Lab Data Lab results reviewed: Yes I reviewed the patient's lab results. Lab Results 01/14/25 14:20: WBC 15.6 H, RBC 5.79, Hgb 17.2, Hct 49.7, MCV 85.8, MCH 29.7, MCHC 34.6, RDW 12.3, Plt Count 314, MPV 10.5 H, Neut % (Auto) 77.0, Lymph % (Auto) 16.8, Kimball % (Auto) 5.2, Eos % (Auto) 0.3, Baso % (Auto) 0.3, Neut # (Auto) 12.0 H, Lymph # (Auto) 2.6, Kimball # (Auto) 0.8, Eos # (Auto) 0.1, Baso # (Auto) 0.1, PT 11.5, INR 1.04, APTT 26.2, Sodium 134 L, Potassium 3.8, Chloride 96 L, Carbon Dioxide 26, Anion Gap 15.8 H, BUN 22 H, Creatinine 0.90, Estimated Creat Clear 76, Estimated GFR 89, Est GFR ( Amer) 108, Glucose 362 H, H emoglobin A1c 10.6 H, Calcium 9.3, Total Bilirubin 1.0, AST 31, ALT 62, Alkaline Phosphatase 96, Troponin I 0.01, Total Protein 8.6 H, Albumin 4.6, Globulin 4.0 H, Albumin/Globulin Ratio 1.2, HCV Ab JACOB w/Rflx PCR Qn Negative, HIV Ag/Ab Combo Qual Negative Orders (Tests/Meds): ED MEDICATIONS Generic Name Dose Route Start Last Admin Trade Name Freq PRN Reason Stop Dose Admin Nicardipine HCl 25 mg/ Sodium 250 mls @ 50 mls/hr 01/14/25 17:05 Chloride IV 02/13/25 17:04 .Q5H MARK Protocol 5 MG/HR Miscellaneous 1 each 01/14/25 14:27 Consider Pt For Statin At Discharge-Stroke NOTAPPLIC 02/13/25 14:26 NEEDED PRN Reminder for med @discharge Discontinued Medications Generic Name Dose Route Start Last Admin Trade Name Freq PRN Reason Stop Dose Admin Lactated Ringer's 500 mls @ 999 mls/hr 01/14/25 14:48 01/14/25 15:59 Lactated Ringer's 1000 Ml Bag IV 01/14/25 15:18 Infused .Q31M ONE Infusion Iopamidol 80 ml 01/14/25 15:55 01/14/25 15:59 Iopamidol-370 (76%);100ml Bottle IV 01/14/25 15:56 80 ml ONCE ONE Administration Ondansetron HCl 4 mg 01/14/25 16:54 Ondansetron 4mg/2ml Vial IV 01/14/25 16:55 ONCE ONE Sodium Chloride 10 ml 01/14/25 15:55 01/14/25 15:59 Sodium Chloride 0.9% 10ml Syr (Rad Only) IV 01/14/25 15:56 10 ml ONCE ONE Administration Sodium Chloride 50 ml 01/14/25 15:55 01/14/25 15:59 0.9 % Sodium Chloride 50 Ml Vial IV 01/14/25 15:56 50 ml ONCE ONE Administration ORDERS Category Date Time Status CT angio head Stat Cat Scan 01/14/25 14:[address] angio neck Stat Cat Scan 01/14/25 14:[address] head/brain wo con Stat Cat Scan 01/14/25 14:27 Completed Activated Partial Thrombo Time Stat Lab 01/14/25 14:20 Completed Complete Blood Count Auto Diff Stat Lab 01/14/25 14:20 Completed Comprehensive Metabolic Panel Stat Lab 01/14/25 14:20 Completed HIV Combo Stat Lab 01/14/25 14:20 Completed Hemoglobin A1C Stat Lab 01/14/25 14:20 Completed Hepatitis C Ab Qual. W/ RFX Stat Lab 01/14/25 14:20 Completed Prothrombin Time INR Stat Lab 01/14/25 14:20 Completed Troponin I Q3H Lab 01/14/25 17:30 Ordered Troponin I Q3H Lab 01/14/25 20:30 Ordered Troponin I Stat Lab 01/14/25 14:20 Completed Medical Decision Narrative: Patient is a 49-year-old male with a past medical history of uncontrolled hypertension, uncontrolled diabetes who presented to the emergency department with 2 days of spinning as well as left-sided weakness. Patient states that his symptoms started on Wednesday. On arrival, patient was significantly hypertensive but vital signs were otherwise unremarkable. Differential includes but not limited to: Intracranial hemorrhage, intracranial ischemia, hypertensive emergency, hypertensive urgency, vertigo, central vertigo, amongst others. Patient's symptoms were more than 24 hours, patient was not stroke alerted on arrival. However concern for new stroke, recrudescence or bleed. Patient signed out to oncoming provider Dr. King to follow-up workup. Patient's labs were reviewed and interpreted by myself: CBC showed no leukocytosis, hemoglobin was stable. INR was normal. CMP showed hyponatremia of 134, mildly elevated anion gap of 15. Hemoglobin A1c 10.6. Ischial troponin 0.01. Patient CT head showed a new area of hyperdensity 5 mm along the left parietal lobe concerning for possible intraparenchymal hemorrhage. Patient had multiple areas of old infarcts. CTA head and neck with no acute large vessel occlusion. Given concern for new intraparenchymal hemorrhage in the setting of hypertension. Patient was started on Cardene. Patient is admitted show blood pressure here in the emergency department was 238 systolic. On repeat prior to initiating blood pressure medications, patient's blood pressure was 213 systolic. Patient was started on Cardene with a goal of 160 systolic. Given concern for new hypertensive bleed likely requiring neurostroke, [facility]. Patient was accepted for transfer. Patient was accepted by Dr. Mortensen. Patient was sent in stable condition on Cardene via ALS. Rosa King DO Critical Care <Noah Browne MD - Last Filed: 01/14/25 15:25> Critical Care Time Critical Care Time: No <Rosa King DO - Last Filed: 01/14/25 17:23> Critical Care Time Critical Care Time: Yes Attestation: On 01/14/25, the high probability of a clinically significant, sudden or life threatening deterioration of the following system(s) required my full and direct attention, intervention and personal management. The time I documented below is in addition to time spent performing reported procedures but includes the following listed in this critical care notation. Total Time Total Critical Care Time: 35
[2025-01-14 14:46] LABS: Alanine Aminotransferase 62 U/L (12-78); Albumin Level 4.6 g/dl (3.5-5.0); Albumin/Globulin Ratio 1.2 (1.1-1.8); Alkaline Phosphatase 96 U/L (38-126); Anion Gap 15.8 mEq/L (5-15); Aspartate Amino Transferase 31 U/L (17-59); Bilirubin,Total 1.0 mg/dl (0.2-1.3); Blood Urea Nitrogen 22 mg/dl (9-20); Carbon Dioxide 26 mmol/L (22.0-30.0); Chloride 96 mmol/L (98-107); Creatinine Clearance Estimated 76 mL/min (50-200); Creatinine,Serum 0.90 mg/dl (0.66-1.25); Estimated Glomerular Filt Rate 89 ml/min (>60); GFR (African American) 108 ML/MIN (>60); Globulin 4.0 g/dL (1.3-3.2); Potassium 3.8 mmoL/L (3.5-5.1); Sodium 134 mmol/L (136-145); Total Protein,Serum 8.6 g/dl (6.3-8.2)
[2025-01-14 14:49] LABS: Hemoglobin A1C 10.6 % (4.0-6.0)
[2025-01-14 14:58] LABS: Troponin I 0.01 ng/ml (0.00-0.034)
[2025-01-14 15:06] LABS: Calcium 9.3 mg/dl (8.4-10.2); Glucose 362 mg/dl (74-100)
[2025-01-14] MEDS: LACTATED RINGERS 1000ML 500 ML 999 ML IV (15:10)
[2025-01-14 15:50] LABS: Hepatitis C Ab Qual. W/ RFX NEGATIVE (Negative)
[2025-01-14] MEDS: 0.9 % SODIUM CHLORIDE 50 ML VIAL IV (15:59)
[2025-01-14] MEDS: IOPAMIDOL-370 (76%);100ML BOTTLE 80 ML IV (15:59)
[2025-01-14] MEDS: SODIUM CHLORIDE 0.9% 10ML SYR (RAD ONLY) 10 ML IV (15:59)
--- NOTE | 2025-01-14 17:00 | PC.NURSE ---
called [facility] for a patient transfer per Dr. King. She is on the phone with them now. Images have been powershared.
[2025-01-14] MEDS: ONDANSETRON 4MG/2ML VIAL 4 MG IV (17:14)
[2025-01-14] MEDS: NICARDIPINE HCL 25 MG in 0.9 % SODIUM CHLORIDE 240 ML 50 MG IV (17:14)
[2025-01-14 17:46] LABS: Troponin I 0.02 ng/ml (0.00-0.034)
== END 2025-01-14 17:44 | disposition short-term general hospital (02) ==
PROVIDERS: Emergency Provider Student in an Organized Health Care Education/Training Program
DX: I61.9 Nontraumatic intracerebral hemorrhage, unspecified (principal); I10 Essential (primary) hypertension; E11.65 Type 2 diabetes mellitus with hyperglycemia; Z86.73 Personal history of transient ischemic attack (TIA), and cerebral infarction without residual deficits; Z87.891 Personal history of nicotine dependence; Z79.84 Long term (current) use of oral hypoglycemic drugs
CPT/HCPCS: 70450; 70496; 70498; 80053; 83036; 84484; 85025; 85610; 85730; 86803; 87389; 93005; 96365; 96375; 99285; J2404; J2405; J7050; J7120; Q9967